=== PATIENT | male | born 1995 | race Caucasian/White ===

== ENCOUNTER 2018-07-09 04:31 | Emergency (ER) | payer SELFPAY ==
--- NOTE | 2018-07-09 04:50 | EDM.PDOC ---
ED HPI GENERAL MEDICAL PROBLEM - General Chief Complaint: Skin Complaint Stated Complaint: UNKNOWN BITE ON LEFT HAND Time Seen by Provider: 07/09/18 04:33 Source of Information: Reports: Patient History Limitations: Reports: No Limitations - History of Present Illness INITIAL COMMENTS - FREE TEXT/NARRATIVE: HISTORY AND PHYSICAL: History of present illness: 22-year-old male presenting to emergency department with chief complaint of left skin infection 3 days. Patient states that roughly 3 days ago he was itching his left wrist and caused a break in the skin. He thinks that he may have gotten a bug bite. The following day he noticed there was increased redness and swelling. This continued to progress today so came to the emergency department for further evaluation. Denies any associated fevers, chills, nausea, vomiting, abdominal pain, or other signs of systemic infection. He has never had a skin infection like this before. He denies any history of MRSA. He is otherwise healthy and takes no medications on a daily basis. He denies any known allergies to medications. On exam there a small ulceration of the left posterior aspect of the forearm approximately 2 inches above the left wrist. There is surrounding erythema approximately silver dollar size with mild induration. No purulent drainage is noted. No other significant findings on exam. Review of systems: As per history of present illness and below otherwise all systems reviewed and negative. Past medical history: As per history of present illness and as reviewed below otherwise noncontributory. Surgical history: As per history of present illness and as reviewed below otherwise noncontributory. Social history: No reported history of drug or alcohol abuse. Family history: As per history of present illness and as reviewed below otherwise noncontributory. Physical exam: HEENT: Atraumatic, normocephalic, pupils reactive, negative for conjunctival pallor or scleral icterus, mucous membranes moist, throat clear, neck supple, nontender, trachea midline. Lungs: Clear to auscultation, breath sounds equal bilaterally, chest nontender. Heart: S1S2, regular, negative for clicks, rubs, or JVD. Abdomen: Soft, nondistended, nontender. Negative for masses or hepatosplenomegaly. Negative for costovertebral tenderness. Pelvis: Stable nontender. Genitourinary: Deferred. Rectal: Deferred. Extremities: Atraumatic, negative for cords or calf pain. Neurovascular unremarkable. Neuro: Awake, alert, oriented. Cranial nerves II through XII unremarkable. Cerebellum unremarkable. Motor and sensory unremarkable throughout. Exam nonfocal. Diagnostics: [] Therapeutics: Rocephin 1 gm IM x1 Bactrim DS PO BID x 7 days Impression: Left forearm cellulitis Plan: Patient was given Rocephin as well as Bactrim. He was discharged with a prescription for Bactrim and instructed to watch for any signs of worsening infection including but not limited to increased swelling, redness, and purulent drainage. He was discharged in good condition with instructions to follow-up with his primary care provider and return to the emergency department if he had any new or worsening symptoms. Definitive disposition and diagnosis as appropriate pending reevaluation and review of above. - Related Data Allergies Allergy/AdvReac Type Severity Reaction Status Date / Time No Known Allergies Allergy Verified 07/09/18 04:45 Home Meds: Home Meds . [No Known Home Meds] 07/09/18 [History] Past Medical History - Past Health History Medical/Surgical History: Denies Medical/Surgical History Social & Family History - Tobacco Use Smoking Status *Q: Current Every Day Smoker Years of Tobacco use: 4 Packs/Tins Daily: 1 - Recreational Drug Use Recreational Drug Use: Yes Drug Use in Last 12 Months: Yes Recreational Drug Type: Reports: Methamphetamine ED ROS GENERAL - Review of Systems Review Of Systems: ROS reveals no pertinent complaints other than HPI. ED EXAM, SKIN/RASH Exam: See Below Course - Vital Signs Last Recorded V/S: Last Vital Signs Temp 96.8 F 07/09/18 04:50 Pulse 73 07/09/18 04:50 Resp 18 07/09/18 04:50 BP 139/78 07/09/18 04:50 Pulse Ox 99 07/09/18 04:50 - Orders/Labs/Meds Meds: Medications Discontinued Medications Generic Name Dose Route Start Last Admin Trade Name Freq PRN Reason Stop Dose Admin Ceftriaxone Sodium 1,000 mg 07/09/18 05:21 Rocephin IM 07/09/18 05:22 ONETIME ONE Ceftriaxone Sodium Confirm 07/09/18 05:42 Rocephin Administered 07/09/18 05:43 Dose 1,000 mg .ROUTE .STK-MED ONE Lidocaine HCl 5 ml 07/09/18 05:41 Xylocaine-Mpf 1% INJECT 07/09/18 05:42 ONETIME ONE Lidocaine HCl 5 ml 07/09/18 05:41 Xylocaine-Mpf 1% INJECT 07/09/18 05:42 ONETIME ONE Trimethoprim/Sulfamethoxazole 2 tab 07/09/18 05:22 Septra Ds PO 07/09/18 05:23 NOW STA Departure - Departure Time of Disposition: 05:55 Disposition: Home, Self-Care 01 Condition: Good Clinical Impression: Cellulitis Qualifiers: Site of cellulitis: extremity Site of cellulitis of extremity: upper extremity Laterality: left Qualified Code(s): L03.114 - Cellulitis of left upper limb - Discharge Information Referrals: PCP,None [Primary Care Provider] - Forms: ED Department Discharge
[2018-07-09] MEDS ORDERED: cefTRIAXone 250 MG Vial IM ONE (05:21)
[2018-07-09] MEDS ORDERED: Sulfamethoxazole/Trimethoprim 800-160 MG Tab PO STA (05:22)
[2018-07-09] MEDS ORDERED: cefTRIAXone 1,000 MG VIAL ONE (05:42)
== END 2018-07-09 06:11 | disposition home or self-care (01) ==
LOC: MW.ED 04:31
DX: L03.114 Cellulitis of left upper limb (principal); F17.210 Nicotine dependence, cigarettes, uncomplicated
CPT/HCPCS: 96372; 99283; A9270; J0696; 99282

== ENCOUNTER 2018-08-08 22:04 | Emergency (ER) | payer SELFPAY ==
--- NOTE | 2018-08-08 22:30 | EDM.PDOC ---
ED HPI GENERAL MEDICAL PROBLEM - General Chief Complaint: Skin Complaint Stated Complaint: INFECTION ON BOTH ARMS Time Seen by Provider: 08/08/18 22:12 Source of Information: Reports: Patient History Limitations: Reports: No Limitations - History of Present Illness INITIAL COMMENTS - FREE TEXT/NARRATIVE: HISTORY AND PHYSICAL: History of present illness: 23-year-old male presenting to emergency department with complaints of infections bilateral arms with past medical history of skin infections. I did see this patient approximately 1 month ago for similar symptoms. States he has not been able to follow-up with a primary care provider however he did improve with the Rocephin and Bactrim that I gave him. Patient denies any associated fevers, chills, nausea, vomiting, or other signs of systemic infection. States that he has a small skin lesion on the left medial aspect of his forearm as well as his right forearm. He did have some drainage from the left forearm. It is whitish in color. He denies any history of MRSA. On exam there is a small ulceration on the left forearm with purulent drainage. Erythema with surrounding induration approximately silver dollar size. I was able to exclude approximately 3 mL of purulent material. Culture was taken. Left wrist has similar raised erythematous lesion with induration. There is no ulceration. Using 2 mL of 1% lidocaine under normal sterile precautions area of interest was anesthetized on the right wrist/forearm. Using an 11 blade a 0.5 cm laceration was made. I was able exude approximately 2 mL of purulent whitish material. Patient tolerated procedure well. Both wounds above covered by with dressing and wrapped by nursing. Review of systems: As per history of present illness and below otherwise all systems reviewed and negative. Past medical history: As per history of present illness and as reviewed below otherwise noncontributory. Surgical history: As per history of present illness and as reviewed below otherwise noncontributory. Social history: No reported history of drug or alcohol abuse. Family history: As per history of present illness and as reviewed below otherwise noncontributory. Physical exam: Please see above H&P HEENT: Atraumatic, normocephalic, pupils reactive, negative for conjunctival pallor or scleral icterus, mucous membranes moist, throat clear, neck supple, nontender, trachea midline. Lungs: Clear to auscultation, breath sounds equal bilaterally, chest nontender. Heart: S1S2, regular, negative for clicks, rubs, or JVD. Abdomen: Soft, nondistended, nontender. Negative for masses or hepatosplenomegaly. Negative for costovertebral tenderness. Pelvis: Stable nontender. Genitourinary: Deferred. Rectal: Deferred. Extremities: Atraumatic, negative for cords or calf pain. Neurovascular unremarkable. Neuro: Awake, alert, oriented. Cranial nerves II through XII unremarkable. Cerebellum unremarkable. Motor and sensory unremarkable throughout. Exam nonfocal. Diagnostics: Wound culture Therapeutics: Rocephin 1 g IM Bactrim DS by mouth twice a day 10 days I&D Impression: Cellulitis with abscess bilateral arms Plan: Please see above H&P I was able to get a culture sent to lab. Did drain abscesses on bilateral arms. Patient was given 1 g Rocephin IM while in the emergency department. In addition I gave him a prescription for Bactrim DS by mouth twice a day 10 days. Instructed him to follow-up with a primary care provider as he may need long-term antibiotics to rid himself of colonization. Instructed patient to return to emergency department if any new or worsening symptoms. Definitive disposition and diagnosis as appropriate pending reevaluation and review of above. both forearms Pain Score (Numeric/FACES): 5 - Related Data Allergies Allergy/AdvReac Type Severity Reaction Status Date / Time No Known Allergies Allergy Verified 08/08/18 22:20 Home Meds: Home Meds . [No Known Home Meds] 07/09/18 [History] Past Medical History - Past Health History Medical/Surgical History: Denies Medical/Surgical History Social & Family History - Family History Family Medical History: Noncontributory - Tobacco Use Smoking Status *Q: Current Every Day Smoker Years of Tobacco use: 4 Packs/Tins Daily: 1 - Recreational Drug Use Recreational Drug Use: No ED ROS GENERAL - Review of Systems Review Of Systems: ROS reveals no pertinent complaints other than HPI. ED EXAM, SKIN/RASH Exam: See Below Course - Vital Signs Last Recorded V/S: Last Vital Signs Temp 97 F 08/08/18 22:04 Pulse 109 H 08/08/18 22:04 Resp 18 08/08/18 22:04 BP 119/78 08/08/18 22:04 Pulse Ox 100 08/08/18 22:04 - Orders/Labs/Meds Orders: Active Orders 24 hr Category Date Time Status CULTURE WOUND [RM] Stat Lab 08/08/18 22:36 Received Meds: Medications Discontinued Medications Generic Name Dose Route Start Last Admin Trade Name Carson PRN Reason Stop Dose Admin Ceftriaxone Sodium 1,000 mg 08/08/18 22:42 08/08/18 22:50 Rocephin IM 08/08/18 22:43 Not Given ONETIME ONE Ceftriaxone Sodium Confirm 08/08/18 22:46 08/08/18 22:50 Rocephin Administered 08/08/18 22:47 Not Given Dose 1,000 mg .ROUTE .STK-MED ONE Ceftriaxone Sodium 1,000 mg/ 2.1 mls @ 2.1 mls/sec 08/08/18 22:46 08/08/18 22 :49 Lidocaine HCl IM 08/08/18 22:47 2.1 mls/sec ONETIME ONE Administration Lidocaine HCl 5 ml 08/08/18 22:40 08/08/18 22:50 Xylocaine-Mpf 1% INJECT 08/08/18 22:41 5 ml ONETIME ONE Administration Departure - Departure Time of Disposition: 23:31 Disposition: Home, Self-Care 01 Condition: Good Clinical Impression: Cellulitis and abscess of upper arm and forearm - Discharge Information Referrals: PCP,None [Primary Care Provider] - Forms: ED Department Discharge Additional Instructions: My general discharge The following information is given to patients seen in the emergency department who are being discharged to home. This information is to outline your options for follow-up care. We provide all patients seen in our emergency department with a follow-up referral. The need for follow-up, as well as the timing and circumstances, are variable depending upon the specifics of your emergency department visit. If you don't have a primary care physician on staff, we will provide you with a referral. We always advise you to contact your personal physician following an emergency department visit to inform them of the circumstance of the visit and for follow-up with them and/or the need for any referrals to a consulting specialist. The emergency department will also refer you to a specialist when appropriate. This referral assures that you have the opportunity for follow-up care with a specialist. All of these measure are taken in an effort to provide you with optimal care, which includes your follow-up. Under all circumstances we always encourage you to contact your private physician who remains a resource for coordinating your care. When calling for follow-up care, please make the office aware that this follow-up is from your recent emergency room visit. If for any reason you are refused follow-up, please contact the [facility] Emergency Department at and asked to speak to the emergency department charge nurse. [facility] [address] [place] [id number] Please call above number to follow-up with a primary care provider as we discussed. Be sure to tell them that you were seen in emergency and they wish for you to be seen as soon as possible. You may need extended antibiotics for possible bacterial colonization. Take medication as prescribed. Return to emergency department if any new or worsening symptoms as we discussed. - My Orders Last 24 Hours: My Active Orders 08/08/18 22:36 CULTURE WOUND [RM] Stat - Assessment/Plan Last 24 Hours: My Active Orders 08/08/18 22:36 CULTURE WOUND [RM] Stat
[2018-08-08] MEDS ORDERED: cefTRIAXone 250 MG Vial IM ONE (22:42)
[2018-08-08] MEDS ORDERED: cefTRIAXone 1,000 MG VIAL ONE (22:46)
== END 2018-08-08 23:45 | disposition home or self-care (01) ==
LOC: MW.ED 22:04
DX: L03.114 Cellulitis of left upper limb (principal); L03.113 Cellulitis of right upper limb; L02.414 Cutaneous abscess of left upper limb; L02.413 Cutaneous abscess of right upper limb; F17.210 Nicotine dependence, cigarettes, uncomplicated
CPT/HCPCS: 10061; 87070; 87077; 87186; 96372; 99284; J0696; 99283

== ENCOUNTER 2019-05-02 18:34 | Observation (INO) | payer MEDICAID ==
--- NOTE | 2019-05-02 19:54 | EDM.PDOC ---
ED HPI GENERAL MEDICAL PROBLEM - General Chief Complaint: Upper Extremity Injury/Pain Stated Complaint: INJURY TO LT HAND Time Seen by Provider: 05/02/19 19:47 - History of Present Illness INITIAL COMMENTS - FREE TEXT/NARRATIVE: HISTORY AND PHYSICAL: History of present illness: Patient 23-year-old white male presents with a concern of status post IV drug abuse in which he now has a swollen red left hand is painful warm to the touch worsening over last 3 days. Patient is an IV methamphetamine user tetanus status. Term Review of systems: As per history of present illness and below otherwise all systems reviewed and negative. Past medical history: As per history of present illness and as reviewed below otherwise noncontributory. Surgical history: As per history of present illness and as reviewed below otherwise noncontributory. Social history: No reported history of drug or alcohol abuse. Family history: As per history of present illness and as reviewed below otherwise noncontributory. Physical exam: HEENT: Atraumatic, normocephalic, pupils reactive, negative for conjunctival pallor or scleral icterus, mucous membranes moist, throat clear, neck supple, nontender, trachea midline. Lungs: Clear to auscultation, breath sounds equal bilaterally, chest nontender. Heart: S1S2, regular, negative for clicks, rubs, or JVD. Abdomen: Soft, nondistended, nontender. Negative for masses or hepatosplenomegaly. Negative for costovertebral tenderness. Pelvis: Stable nontender. Genitourinary: Deferred. Rectal: Deferred. Extremities: Left hand has a small excoriated area on the dorsal aspect with erythema warmth and tenderness to palpation is no fluctuance point tenderness neurovascular exam is unremarkable Neuro: Awake, alert, oriented. Cranial nerves II through XII unremarkable. Cerebellum unremarkable. Motor and sensory unremarkable throughout. Exam nonfocal. Diagnostics: X-ray left hand CBC CMP blood culture 2 Therapeutics: Saline 1 L bolus vancomycin 1 g IV Impression: #1 IV drug abuse #2 cellulitis left hand Definitive disposition and diagnosis as appropriate pending reevaluation and review of above. Left Hand Pain Score (Numeric/FACES): 8 - Related Data Allergies Allergy/AdvReac Type Severity Reaction Status Date / Time No Known Allergies Allergy Verified 05/02/19 18:53 Home Meds: Home Meds . [No Known Home Meds] 07/09/18 [History] Past Medical History - Past Health History Medical/Surgical History: Denies Medical/Surgical History - Infectious Disease History Infectious Disease History: Reports: Chicken Pox Social & Family History - Family History Family Medical History: Noncontributory - Tobacco Use Smoking Status *Q: Current Every Day Smoker Years of Tobacco use: 7 Packs/Tins Daily: 2 - Caffeine Use Caffeine Use: Reports: Coffee - Recreational Drug Use Recreational Drug Use: Yes Recreational Drug Type: Reports: Methamphetamine Recreational Drug Use Frequency: Daily Review of Systems - Review of Systems Review Of Systems: ROS reveals no pertinent complaints other than HPI. ED EXAM, GENERAL - Physical Exam Exam: See Below (See dictation) Course - Vital Signs Last Recorded V/S: Last Vital Signs Temp 36.4 C 05/02/19 18:53 Pulse 102 H 05/02/19 20:19 Resp 17 05/02/19 20:19 BP 111/67 05/02/19 20:19 Pulse Ox 97 05/02/19 20:19 - Orders/Labs/Meds Orders: Active Orders 24 hr Category Date Time Status Hand Comp Min 3V Lt [CR] Stat Exams 05/02/19 19:52 Taken COMPREHENSIVE METABOLIC PN,CMP [CHEM] Stat Lab 05/02/19 20:05 Received CULTURE BLOOD [BC] Stat Lab 05/02/19 20:05 Results CULTURE BLOOD [BC] Stat Lab 05/02/19 20:16 Received Sodium Chloride 0.9% [Normal Saline] 1,000 ml Med 05/02/19 20:00 Active IV ASDIRECTED Vancomycin [Vancocin] 1 gm Med 05/02/19 19:53 Active Sodium Chloride 0.9% [Normal Saline] 250 ml IV ONETIME Blood Culture x2 Reflex Set [OM.PC] Stat Oth 05/02/19 20:20 Ordered Medication Orders Vancomycin HCl 1 gm/ Sodium (Chloride) 250 mls @ 166 mls/hr IV ONETIME ONE Stop: 05/02/19 21:23 Last Admin: 05/02/19 20:14 Dose: 166 mls/hr Sodium Chloride (Normal Saline) 1,000 mls @ 999 mls/hr IV ASDIRECTED SRINIVASA Last Admin: 05/02/19 20:12 Dose: 999 mls/hr Labs: Laboratory Tests 05/02/19 Range/Units 20:05 WBC 14.56 H (4.0-11.0) K/uL RBC 5.51 (4.50-5.90) M/uL Hgb 15.9 (13.0-17.0) g/dL Hct 47.0 (38.0-50.0) % MCV 85.3 (80.0-98.0) fL MCH 28.9 (27.0-32.0) pg MCHC 33.8 (31.0-37.0) g/dL RDW Std Deviation 44.6 (28.0-62.0) fl RDW Coeff of Sepideh 14 (11.0-15.0) % Plt Count 232 (150-400) K/uL MPV 10.40 (7.40-12.00) fL Neut % (Auto) 84.4 H (48.0-80.0) % Lymph % (Auto) 7.1 L (16.0-40.0) % [place] % (Auto) 6.0 (0.0-15.0) % Eos % (Auto) 2.2 (0.0-7.0) % Baso % (Auto) 0.3 (0.0-1.5) % Neut # (Auto) 12.3 H (1.4-5.7) K/uL Lymph # (Auto) 1.0 (0.6-2.4) K/uL [place] # (Auto) 0.9 H (0.0-0.8) K/uL Eos # (Auto) 0.3 (0.0-0.7) K/uL Baso # (Auto) 0.0 (0.0-0.1) K/uL Nucleated RBC % 0.0 /100WBC Nucleated RBCs # 0 K/uL Meds: Medications Generic Name Dose Route Start Last Admin Trade Name Freq PRN Reason Stop Dose Admin Vancomycin HCl 1 gm/ Sodium 250 mls @ 166 mls/hr 05/02/19 19:53 05/02/19 20: 14 Chloride IV 05/02/19 21:23 166 mls/hr ONETIME ONE Administration Sodium Chloride 1,000 mls @ 999 mls/hr 05/02/19 20:00 05/02/19 20:12 Normal Saline IV 999 mls/hr ASDIRECTED SRINIVASA Administration Discontinued Medications Generic Name Dose Route Start Last Admin Trade Name Freq PRN Reason Stop Dose Admin Sodium Chloride Confirm 06/27/19 20:05 05/02/19 20:14 Normal Saline Administered 05/02/19 20:06 250 mls/hr Dose Administration 250 mls @ as directed .ROUTE .STK-MED ONE Vancomycin HCl Confirm 05/02/19 20:05 05/02/19 20:14 Vancomycin Administered 05/02/19 20:06 1 gm Dose Administration 1 gm .ROUTE .STK-MED ONE Departure - Departure Time of Disposition: 20:36 Disposition: Refer to Observation Condition: Good Clinical Impression: Cellulitis Qualifiers: Site of cellulitis: extremity Site of cellulitis of extremity: upper extremity Laterality: left Qualified Code(s): L03.114 - Cellulitis of left upper limb - Discharge Information Referrals: PCP,None [Primary Care Provider] - Forms: ED Department Discharge - My Orders Last 24 Hours: My Active Orders 05/02/19 19:52 Hand Comp Min 3V Lt [CR] Stat 05/02/19 19:53 Vancomycin [Vancocin] 1 gm Sodium Chloride 0.9% [Normal Saline] 250 ml IV ONETIME 05/02/19 20:00 Sodium Chloride 0.9% [Normal Saline] 1,000 ml IV ASDIRECTED 05/02/19 20:05 COMPREHENSIVE METABOLIC PN,CMP [CHEM] Stat CULTURE BLOOD [BC] Stat 05/02/19 20:16 CULTURE BLOOD [BC] Stat 05/02/19 20:20 Blood Culture x2 Reflex Set [OM.PC] Stat - Assessment/Plan Last 24 Hours: My Active Orders 05/02/19 19:52 Hand Comp Min 3V Lt [CR] Stat 05/02/19 19:53 Vancomycin [Vancocin] 1 gm Sodium Chloride 0.9% [Normal Saline] 250 ml IV ONETIME 05/02/19 20:00 Sodium Chloride 0.9% [Normal Saline] 1,000 ml IV ASDIRECTED 05/02/19 20:05 COMPREHENSIVE METABOLIC PN,CMP [CHEM] Stat CULTURE BLOOD [BC] Stat 05/02/19 20:16 CULTURE BLOOD [BC] Stat 05/02/19 20:20 Blood Culture x2 Reflex Set [OM.PC] Stat
[2019-05-02] MEDS ORDERED: Sodium Chloride 0.9% 1,000 ML IV SCH (20:00)
[2019-05-02] MEDS ORDERED: Vancomycin 1 GM SDV ONE (20:05)
[2019-05-02] MEDS ORDERED: Sodium Chloride 0.9% 250 ML ONE (20:05)
[2019-05-02 20:42] LABS: CHLORIDE,CL 103 mmol/L (98-107); SODIUM,NA 138 mmol/L (136-148)
--- NOTE | 2019-05-02 20:58 | CR ---
Indication: Pain and swelling, IVDA Technique: Three views left hand Comparison: None Findings: Bones: Alignment is normal. No fractures or bone lesions. Joint spaces: Unremarkable. Soft tissues: Soft tissue swelling along the dorsum of the hand. No radiopaque foreign body or soft tissue gas. Impression: Soft tissue swelling along the dorsum of the hand. No radiopaque foreign body, soft tissue gas, or osseous abnormality. Dictated by Brianna Lamar MD @ May 02 2019 8:49PM Signed by Dr. Brianna Lamar @ May 02 2019 8:56PM
[2019-05-02] MEDS ORDERED: Acetaminophen 325 MG Tab PO PRN (22:15)
--- NOTE | 2019-05-02 23:04 | PCM.HP ---
H&P History of Present Illness - General Date of Service: 05/02/19 Admit Problem/Dx: Admission Diagnosis/Problem Admission Diagnosis/Problem Cellulitis - History of Present Illness Initial Comments - Free Text/Narative: 23 yo male with pmh of meth use who presents with three day history of hand swelling and redness. Patient reports injecting meth into his forearm. He denies any fevers or chills. Left Hand Pain Score (Numeric/FACES): 7 - Related Data Allergies/Adverse Reactions: Allergies Allergy/AdvReac Type Severity Reaction Status Date / Time No Known Allergies Allergy Verified 05/02/19 21:53 Home Medications: Home Meds . [No Known Home Meds] 07/09/18 [History] Past Medical History - Past Health History Medical/Surgical History: Denies Medical/Surgical History - Infectious Disease History Infectious Disease History: Reports: Chicken Pox Social & Family History - Family History Family Medical History: Noncontributory - Tobacco Use Smoking Status *Q: Current Every Day Smoker Years of Tobacco use: 7 Packs/Tins Daily: 1 - Caffeine Use Caffeine Use: Reports: Soda - Recreational Drug Use Recreational Drug Use: Yes Recreational Drug Type: Reports: Methamphetamine Recreational Drug Use Frequency: Daily H&P Review of Systems - Review of Systems: Review Of Systems: ROS reveals no pertinent complaints other than HPI. Exam - Exam Exam: See Below - Vital Signs Vital Signs: Last Vital Signs Temp 36.8 C 05/02/19 21:48 Pulse 88 05/02/19 21:48 Resp 16 05/02/19 21:48 BP 121/64 05/02/19 21:48 Pulse Ox 100 05/02/19 21:48 Weight: 93.6 kg - Exam General: Alert, Oriented HEENT: Mucosa Moist & [place] Neck: Supple Lungs: Clear to Auscultation, Normal Respiratory Effort Cardiovascular: Regular Rate, Regular Rhythm GI/Abdominal Exam: Soft, Non-Tender Extremities: Other (about 3-4 cm circular area of erythema and edema of the dorsum of the left hand. Edema does not involve any joints, patine has full flextion and extention of fingers. no area of fluctuance or drainage noted) - Patient Data Lab Results Last 24 hrs: Laboratory Results - last 24 hr 05/02/19 05/02/19 Range/Units 20:05 20:05 WBC 14.56 H (4.0-11.0) K/uL RBC 5.51 (4.50-5.90) M/uL Hgb 15.9 (13.0-17.0) g/dL Hct 47.0 (38.0-50.0) % MCV 85.3 (80.0-98.0) fL MCH 28.9 (27.0-32.0) pg MCHC 33.8 (31.0-37.0) g/dL RDW Std Deviation 44.6 (28.0-62.0) fl RDW Coeff of Sepideh 14 (11.0-15.0) % Plt Count 232 (150-400) K/uL MPV 10.40 (7.40-12.00) fL Neut % (Auto) 84.4 H (48.0-80.0) % Lymph % (Auto) 7.1 L (16.0-40.0) % [place] % (Auto) 6.0 (0.0-15.0) % Eos % (Auto) 2.2 (0.0-7.0) % Baso % (Auto) 0.3 (0.0-1.5) % Neut # (Auto) 12.3 H (1.4-5.7) K/uL Lymph # (Auto) 1.0 (0.6-2.4) K/uL [place] # (Auto) 0.9 H (0.0-0.8) K/uL Eos # (Auto) 0.3 (0.0-0.7) K/uL Baso # (Auto) 0.0 (0.0-0.1) K/uL Nucleated RBC % 0.0 /100WBC Nucleated RBCs # 0 K/uL Sodium 138 (136-148) mmol/L Potassium 3.7 (3.5-5.1) mmol/L Chloride 103 (98-107) mmol/L Carbon Dioxide 26.4 (21.0-32.0) mmol/L BUN 8 (7.0-18.0) mg/dL Creatinine 0.9 (0.8-1.3) mg/dL Est Cr Clr Drug Dosing 130.68 mL/min Estimated GFR (MDRD) > 60.0 ml/min Glucose 149 H (74-106) mg/dL Calcium 8.6 (8.5-10.1) mg/dL Total Bilirubin 0.4 (0.2-1.0) mg/dL AST 17 (15-37) IU/L ALT 22 (14-63) IU/L Alkaline Phosphatase 70 (46-116) U/L Total Protein 7.8 (6.4-8.2) g/dL Albumin 4.0 (3.4-5.0) g/dL Globulin 3.8 (2.6-4.0) g/dL Albumin/Globulin Ratio 1.1 (0.9-1.6) Result Diagrams: 05/02/19 20:05 05/02/19 20:05 Rupesh Results Last 24 hrs: Microbiology 05/02/19 20:05 Anaerobic Blood Culture - Final Blood Problem List Initiated/Reviewed/Updated: Yes Orders Last 24hrs: Active Orders 24 hr Category Date Time Status Patient Status [ADT] Stat ADT 05/02/19 20:38 Active Regular Diet [DIET] Diet 05/03/19 Breakfast Active BASIC METABOLIC PANEL,BMP [CHEM] Routine Lab 05/03/19 05:00 Ordered CBC WITH AUTO DIFF [HEME] Routine Lab 05/03/19 05:00 Ordered CULTURE BLOOD [BC] Stat Lab 05/02/19 20:05 Results CULTURE BLOOD [BC] Stat Lab 05/02/19 20:16 Received Acetaminophen [Tylenol] Med 05/02/19 22:15 Active 650 mg PO Q6H PRN Pharmacy to Dose - Vancomycin Med 05/02/19 22:15 Pending 1 dose .XX ASDIRECTED Sodium Chloride 0.9% [Normal Saline] 1,000 ml Med 05/02/19 20:00 Active IV ASDIRECTED Vancomycin 500 mg Med 05/02/19 22:30 Active Sodium Chloride 0.9% [Normal Saline] 100 ml IV ONETIME Blood Culture x2 Reflex Set [OM.PC] Stat Oth 05/02/19 20:20 Ordered Medication Orders Acetaminophen (Tylenol) 650 mg PO Q6H PRN PRN Reason: Pain Sodium Chloride (Normal Saline) 1,000 mls @ 999 mls/hr IV ASDIRECTED [facility] Last Admin: 05/02/19 20:12 Dose: 999 mls/hr Vancomycin HCl 500 mg/ Sodium (Chloride) 100 mls @ 100 mls/hr IV ONETIME ONE Stop: 05/02/19 23:29 Vancomycin HCl (Pharmacy To Dose - Vancomycin) 1 dose .XX ASDIRECTED [facility] [place] Assessment/Plan Comment:: 23 yo male admitted with left hand cellulitis. We will treat with vancomycin.
[2019-05-03 05:35] LABS: CHLORIDE,CL 105 mmol/L (98-107); SODIUM,NA 141 mmol/L (136-148)
[2019-05-03] MEDS: Vancomycin 1.5 GM in Sodium Chloride 0.9% 500 ML IV SCH ×2 (08:02→15:32)
[2019-05-03] MEDS ORDERED: Nicotine 14 MG/24 Hr Patch TRDERM SCH (09:00)
--- NOTE | 2019-05-03 12:58 | PCM.PN ---
- General Info Date of Service: 05/03/19 Subjective Update: No acute events overnight. Afebrile. states his hand is less swollen. Pain is controlled. No discharge. - Patient Data Vitals - Most Recent: Last Vital Signs Temp 36.6 C 05/03/19 11:20 Pulse 74 05/03/19 11:20 Resp 16 05/03/19 11:20 BP 98/56 L 05/03/19 11:20 Pulse Ox 100 05/03/19 11:20 Weight - Most Recent: 93.6 kg I&O - Last 24 Hours: Intake & Output 05/02/19 05/03/19 05/03/19 22:59 06:59 14:59 Intake Total 100 500 Output Total 0 Balance 100 500 Lab Results Last 24 Hours: Laboratory Results - last 24 hr 05/02/19 05/02/19 05/03/19 Range/Units 20:05 20:05 04:50 WBC 14.56 H 8.79 (4.0-11.0) K/uL RBC 5.51 5.01 (4.50-5.90) M/uL Hgb 15.9 14.2 (13.0-17.0) g/dL Hct 47.0 42.9 (38.0-50.0) % MCV 85.3 85.6 (80.0-98.0) fL MCH 28.9 28.3 (27.0-32.0) pg MCHC 33.8 33.1 (31.0-37.0) g/dL RDW Std Deviation 44.6 45.1 (28.0-62.0) fl RDW Coeff of Sepideh 14 15 (11.0-15.0) % Plt Count 232 179 (150-400) K/uL MPV 10.40 9.70 (7.40-12.00) fL Neut % (Auto) 84.4 H 69.7 (48.0-80.0) % Lymph % (Auto) 7.1 L 18.7 (16.0-40.0) % [place] % (Auto) 6.0 8.5 (0.0-15.0) % Eos % (Auto) 2.2 2.8 (0.0-7.0) % Baso % (Auto) 0.3 0.3 (0.0-1.5) % Neut # (Auto) 12.3 H 6.1 H (1.4-5.7) K/uL Lymph # (Auto) 1.0 1.6 (0.6-2.4) K/uL [place] # (Auto) 0.9 H 0.8 (0.0-0.8) K/uL Eos # (Auto) 0.3 0.3 (0.0-0.7) K/uL Baso # (Auto) 0.0 0.0 (0.0-0.1) K/uL Nucleated RBC % 0.0 0.0 /100WBC Nucleated RBCs # 0 0 K/uL Sodium 138 (136-148) mmol/L Potassium 3.7 (3.5-5.1) mmol/L Chloride 103 (98-107) mmol/L Carbon Dioxide 26.4 (21.0-32.0) mmol/L BUN 8 (7.0-18.0) mg/dL Creatinine 0.9 (0.8-1.3) mg/dL Est Cr Clr Drug Dosing 130.68 mL/min Estimated GFR (MDRD) > 60.0 ml/min Glucose 149 H (74-106) mg/dL Calcium 8.6 (8.5-10.1) mg/dL Total Bilirubin 0.4 (0.2-1.0) mg/dL AST 17 (15-37) IU/L ALT 22 (14-63) IU/L Alkaline Phosphatase 70 (46-116) U/L Total Protein 7.8 (6.4-8.2) g/dL Albumin 4.0 (3.4-5.0) g/dL Globulin 3.8 (2.6-4.0) g/dL Albumin/Globulin Ratio 1.1 (0.9-1.6) 05/03/19 Range/Units 04:50 WBC (4.0-11.0) K/uL RBC (4.50-5.90) M/uL Hgb (13.0-17.0) g/dL Hct (38.0-50.0) % MCV (80.0-98.0) fL MCH (27.0-32.0) pg MCHC (31.0-37.0) g/dL RDW Std Deviation (28.0-62.0) fl RDW Coeff of Sepideh (11.0-15.0) % Plt Count (150-400) K/uL MPV (7.40-12.00) fL Neut % (Auto) (48.0-80.0) % Lymph % (Auto) (16.0-40.0) % [place] % (Auto) (0.0-15.0) % Eos % (Auto) (0.0-7.0) % Baso % (Auto) (0.0-1.5) % Neut # (Auto) (1.4-5.7) K/uL Lymph # (Auto) (0.6-2.4) K/uL [place] # (Auto) (0.0-0.8) K/uL Eos # (Auto) (0.0-0.7) K/uL Baso # (Auto) (0.0-0.1) K/uL Nucleated RBC % /100WBC Nucleated RBCs # K/uL Sodium 141 (136-148) mmol/L Potassium 3.9 (3.5-5.1) mmol/L Chloride 105 (98-107) mmol/L Carbon Dioxide 29.0 (21.0-32.0) mmol/L BUN 6 L (7.0-18.0) mg/dL Creatinine 0.9 (0.8-1.3) mg/dL Est Cr Clr Drug Dosing 130.68 mL/min Estimated GFR (MDRD) > 60.0 ml/min Glucose 93 (74-106) mg/dL Calcium 8.1 L (8.5-10.1) mg/dL Total Bilirubin (0.2-1.0) mg/dL AST (15-37) IU/L ALT (14-63) IU/L Alkaline Phosphatase (46-116) U/L Total Protein (6.4-8.2) g/dL Albumin (3.4-5.0) g/dL Globulin (2.6-4.0) g/dL Albumin/Globulin Ratio (0.9-1.6) Rupesh Results Last 24 Hours: Microbiology 05/02/19 20:05 Anaerobic Blood Culture - Final Blood Med Orders - Current: Current Medications Acetaminophen (Tylenol) 650 mg PO Q6H PRN PRN Reason: Pain Sodium Chloride (Normal Saline) 1,000 mls @ 999 mls/hr IV ASDIRECTED [facility] Last Admin: 05/02/19 20:12 Dose: 999 mls/hr Vancomycin HCl 1.5 gm/ Sodium (Chloride) 500 mls @ 333.333 mls/hr IV Q8H [facility] Last Admin: 05/03/19 08:02 Dose: 333.333 mls/hr Nicotine (Habitrol) 14 mg TRDERM DAILY [facility] Last Admin: 05/03/19 09:39 Dose: 14 mg Vancomycin HCl (Pharmacy To Dose - Vancomycin) 1 dose .XX ASDIRECTED [facility] Discontinued Medications Vancomycin HCl 1 gm/ Sodium (Chloride) 250 mls @ 166 mls/hr IV ONETIME ONE Stop: 05/02/19 21:23 Last Admin: 05/02/19 20:14 Dose: 166 mls/hr Sodium Chloride (Normal Saline) Confirm Administered Dose 250 mls @ as directed .ROUTE .STK-MED ONE Stop: 05/02/19 20:06 Last Admin: 05/02/19 20:14 Dose: 250 mls/hr Vancomycin HCl 500 mg/ Sodium (Chloride) 100 mls @ 100 mls/hr IV ONETIME ONE Stop: 05/02/19 23:29 Last Admin: 05/03/19 00:33 Dose: 100 mls/hr Vancomycin HCl (Vancomycin) Confirm Administered Dose 1 gm .ROUTE .STK-MED ONE Stop: 05/02/19 20:06 Last Admin: 05/02/19 20:14 Dose: 1 gm - Exam General: Alert, Oriented, Cooperative, No Acute Distress Lungs: Clear to Auscultation, Normal Respiratory Effort Cardiovascular: Regular Rate, Regular Rhythm, No Murmurs Extremities: Other (mild swelling on left dorsal hand area with some erythema and warmth.) Skin: Warm, Dry - Problem List Review Problem List Initiated/Reviewed/Updated: Yes - My Orders Last 24 Hours: My Active Orders 05/03/19 09:00 Nicotine [Habitrol] 14 mg TRDERM DAILY - Plan Plan:: A: 1. Left hand cellulitis 2. Polysubstance abuse P: 1. Left hand cellulitis, improving. Will continue with Vancomycin. 2. Polysubstance abuse. ordered nicotine patch. Dispo: dc tomorrow.
[2019-05-04] MEDS: Vancomycin 1.5 GM in Sodium Chloride 0.9% 500 ML IV SCH ×2 (00:03→09:10)
[2019-05-04 08:10] LABS: CHLORIDE,CL 106 mmol/L (98-107); SODIUM,NA 141 mmol/L (136-148)
--- NOTE | 2019-05-04 10:55 | PCM.DCSUM1 ---
Discharge Summary - Discharge Data Discharge Date: 05/04/19 Discharge Disposition: Home, Self-Care 01 Condition: Good - Patient Summary/Data Hospital Course: 23 yo male admitted with left hand cellulitis. Patient presented with 3-4 cm area of erythema over dorsum of left hand. He was noted to have a white count of 14,360. Hand x-ray showed no foreign object, no soft tissue gas, and no osseous abnormalities. He was treated with IV Vancomycin for two days with improvement in the cellulitis. He is to be discharge home and is to take Bactrim for five more days. He is to follow up with Dr. Pop. - Discharge Plan Prescriptions/Med Rec: Sulfamethoxazole/Trimethoprim [Bactrim Ds Tablet] 1 each PO BID #10 tablet Home Medications: Home Meds Sulfamethoxazole/Trimethoprim [Bactrim Ds Tablet] 1 each PO BID #10 tablet 05/04 [Rx] Patient Handouts: Cellulitis, Adult, [id number] Referrals: Jose Santamaria MD [Resident] - 05/13/19 4:15 pm - Discharge Summary/Plan Comment DC Time >30 min.: No - Patient Data Vitals - Most Recent: Last Vital Signs Temp 36 C 05/04/19 07:15 Pulse 78 05/04/19 07:15 Resp 16 05/04/19 07:15 BP 111/60 05/04/19 07:15 Pulse Ox 98 05/04/19 07:15 Weight - Most Recent: 93.6 kg I&O - Last 24 hours: Intake & Output 05/03/19 05/04/19 05/04/19 22:59 06:59 14:59 Intake Total 1240 1100 Output Total 700 1000 Balance 540 100 Lab Results - Last 24 hrs: Laboratory Results - last 24 hr 05/04/19 05/04/19 05/04/19 Range/Units 07:38 07:38 07:38 WBC 8.32 (4.0-11.0) K/uL RBC 5.14 (4.50-5.90) M/uL Hgb 14.6 (13.0-17.0) g/dL Hct 44.1 (38.0-50.0) % MCV 85.8 (80.0-98.0) fL MCH 28.4 (27.0-32.0) pg MCHC 33.1 (31.0-37.0) g/dL RDW Std Deviation 45.5 (28.0-62.0) fl RDW Coeff of Sepideh 15 (11.0-15.0) % Plt Count 186 (150-400) K/uL MPV 10.00 (7.40-12.00) fL Nucleated RBC % 0.0 /100WBC Nucleated RBCs # 0 K/uL Sodium 141 (136-148) mmol/L Potassium 3.9 (3.5-5.1) mmol/L Chloride 106 (98-107) mmol/L Carbon Dioxide 26.8 (21.0-32.0) mmol/L BUN 9 (7.0-18.0) mg/dL Creatinine 0.9 (0.8-1.3) mg/dL Est Cr Clr Drug Dosing 130.68 mL/min Estimated GFR (MDRD) > 60.0 ml/min Glucose 88 (74-106) mg/dL Calcium 8.4 L (8.5-10.1) mg/dL Vancomycin Trough 13.2 H (5.0-10.0) ug/mL [facility] Results - Last 24 hrs: Microbiology 05/02/19 20:16 Aerobic Blood Culture - Preliminary Blood - Venous NO GROWTH AFTER 1 DAY Anaerobic Blood Culture - Preliminary NO GROWTH AFTER 1 DAY 05/02/19 20:05 Aerobic Blood Culture - Preliminary Blood NO GROWTH AFTER 1 DAY Anaerobic Blood Culture - Final Med Orders - Current: Current Medications Acetaminophen (Tylenol) 650 mg PO Q6H PRN PRN Reason: Pain Last Admin: 05/03/19 19:54 Dose: 650 mg Sodium Chloride (Normal Saline) 1,000 mls @ 999 mls/hr IV ASDIRECTED [facility] Last Admin: 05/02/19 20:12 Dose: 999 mls/hr Vancomycin HCl 1.5 gm/ Sodium (Chloride) 500 mls @ 333.333 mls/hr IV Q8H [facility] Last Admin: 05/04/19 09:10 Dose: 333.333 mls/hr Nicotine (Habitrol) 14 mg TRDERM DAILY [facility] Last Admin: 05/03/19 09:39 Dose: 14 mg Vancomycin HCl (Pharmacy To Dose - Vancomycin) 1 dose .XX ASDIRECTED [facility] Discontinued Medications Vancomycin HCl 1 gm/ Sodium (Chloride) 250 mls @ 166 mls/hr IV ONETIME ONE Stop: 05/02/19 21:23 Last Admin: 05/02/19 20:14 Dose: 166 mls/hr Sodium Chloride (Normal Saline) Confirm Administered Dose 250 mls @ as directed .ROUTE .STK-MED ONE Stop: 05/02/19 20:06 Last Admin: 05/02/19 20:14 Dose: 250 mls/hr Vancomycin HCl 500 mg/ Sodium (Chloride) 100 mls @ 100 mls/hr IV ONETIME ONE Stop: 05/02/19 23:29 Last Admin: 05/03/19 00:33 Dose: 100 mls/hr Vancomycin HCl (Vancomycin) Confirm Administered Dose 1 gm .ROUTE .STK-MED ONE Stop: 05/02/19 20:06 Last Admin: 05/02/19 20:14 Dose: 1 gm
== END 2019-05-04 12:45 | disposition home or self-care (01) ==
LOC: MW.ED 18:34 → MW.MS 20:38
PROVIDERS: ADMIT Internal Medicine; ATTEND Internal Medicine
DX: L03.114 Cellulitis of left upper limb (principal); F17.200 Nicotine dependence, unspecified, uncomplicated; F19.10 Other psychoactive substance abuse, uncomplicated
CPT/HCPCS: 36415; 73130; 80048; 80053; 80202; 85025; 85027; 87040; 96365; 96366; 99284; A9270; J3370; J7030; J7040; J7050; 96376; 99283; G0378